=== PATIENT | female | born 1985 | race Caucasian/White ===

== ENCOUNTER 2016-10-13 22:45 | Emergency (ER) | payer BC ==
--- NOTE | ~2016-10-13 | ER ---
PATIENT'S NAME: ALDO [facility] AGE: 31 Y [address] ROOM: [place] [address] LOCATION: [facility] ADMIT DATE: 10/13/2016 ER/Outpatient Report DISCHARGE DATE: FAMILY PHYSICIAN: Jones Stevenson MD ATTENDING PHYSICIAN: Oscar Rodrigues Admission date and time are documented in the medical record. I saw the patient at 2300 hours. CHIEF COMPLAINT: Headache, hyperventilation, and anxiety. HISTORY OF PRESENT ILLNESS: The patient is a 31-year-old female, who came in with a 2-hour history of right-sided headache and occipital headache. Had some nausea, but no vomiting, was photophobic. Was hyperventilating and quite anxious on arrival here to the emergency department. Her respiratory rate was 30. Her oximetry is 100% on room air. She was afebrile. Did have some chest heaviness from her hyperventilation. She was a little bit short of breath because of this also. No abdominal pain. No diarrhea or urinary complaints. No joint or muscle swelling, redness, or pain. No skin eruptions or rash. Does have a history of anxiety or headaches. No endocrine problems. HOME MEDICATIONS: See attached medication list. ALLERGIES: PENICILLIN. SOCIAL HISTORY: Nonsmoker, nondrinker. SIGNIFICANT PAST MEDICAL HISTORY: Anxiety and headaches. OPERATIONS: None. REVIEW OF SYSTEMS: All systems reviewed by me are negative with the exception of those discussed in the history of present illness. PHYSICAL EXAMINATION: VITAL SIGNS: Temperature 98.7 tympanic, pulse 81, respirations 30, blood pressure 129/76, O2 saturation on room air is 100%. PATIENT'S NAME: ALDO [facility] AGE: 31 Y [address] ROOM: [place] [address] LOCATION: [facility] ADMIT DATE: 10/13/2016 ER/Outpatient Report DISCHARGE DATE: FAMILY PHYSICIAN: Jones Stevenson MD ATTENDING PHYSICIAN: Oscar Rodrigues HEAD: Normocephalic. EYES: Extraocular muscles intact. PERRL. Sclerae and conjunctivae clear, nonicteric. EARS: Clear TMs bilaterally. NOSE: Clear. THROAT: Clear. Mucous membranes moist. Teeth, jaw intact. NECK: No nuchal rigidity. No thyromegaly or cervical lymphadenopathy. No carotid bruits. SPINE: Negative. LUNGS: Clear. Good air flow. Was initially hyperventilating, but settled down nicely here in the emergency department. HEART: Regular. Pulses are palpable. The patient was never tachycardic. ABDOMEN: Soft, nondistended, nontender. Good bowel tones. No organomegaly or abnormal masses palpable. EXTREMITIES: No peripheral edema, cyanosis, or deformity. NEUROVASCULAR: Intact other than she is quite anxious on hyperventilating. SKIN: Clear. EMERGENCY DEPARTMENT COURSE: I did start the patient on IV normal saline and fluids. Gave her 1 L normal saline here in the emergency department. Gave her Benadryl 50 mg IV in the emergency department followed 10 minutes later by Compazine 10 mg IV plus Ativan 1 mg IV. She had good improvement in her headache, anxiety level, and respiratory rate level. IMPRESSION: 1. Headache. 2. Hyperventilation. 3. Anxiety. PLAN: The patient dismissed to home. Observation. Activity as tolerated. Rest. Continue present home medications and care. Fluids and diet as tolerated. Follow up with personal physician as needed or as scheduled. Did start her on Ativan 1 mg 3 times a day as needed for anxiety #3. OSCAR RODRIGUES MD SDS/modl /[id number] d: 10/14/160 t: 10/14/16 1814, OUTPATIENT REPORT
== END 2016-10-14 02:06 | disposition disaster alternative care site (69) ==
LOC: GMED 22:45
DX: R51 Headache (principal); R06.4 Hyperventilation; F41.9 Anxiety disorder, unspecified; Z88.0 Allergy status to penicillin; Z79.899 Other long term (current) drug therapy
CPT/HCPCS: J0780; J1200; J2060; J7030